=== PATIENT | male | born 1960 | race Caucasian/White ===

== ENCOUNTER 2017-04-20 14:02 | Emergency (ER) | payer MEDICAID, OTHER, SELFPAY ==
[~2017-04-20] VITALS: Ht 177.8 cm; Wt 91.0 kg
[2017-04-20] MEDS ORDERED: SODIUM CHLORIDE 0.9% 1,000ML IVBOLUS ONE ×2 (14:30→19:30)
[2017-04-20] MEDS ORDERED: ONDANSETRON 2MG/ML, 2ML ONE (19:07)
[2017-04-20] MEDS ORDERED: LORazepam 2 MG/ML, 1ML ONE (19:07)
[2017-04-20] MEDS ORDERED: LORazepam 2 MG/ML, 1ML IVPush ONE (19:30)
[2017-04-20] MEDS ORDERED: ONDANSETRON 2MG/ML, 2ML IVPush ONE (19:30)
[2017-04-20 20:05] VITALS: BP 126/85
== END 2017-04-20 20:21 | disposition home or self-care (01) ==
LOC: ED 20:15
DX: F10.220 Alcohol dependence with intoxication, uncomplicated (principal)
CPT/HCPCS: 96361; 96374; 96375; 99284; J2060; J2405; J7030

== ENCOUNTER 2017-04-20 23:19 | Emergency (ER) | payer SELFPAY ==
[2017-04-20 23:50] LABS: BLOOD UREA NITROGEN 7 mg/dL (7-18)
[2017-04-21 02:27] VITALS: BP 140/99
== END 2017-04-21 02:46 | disposition home or self-care (01) ==
LOC: ED 23:38
DX: S06.0X0A Concussion without loss of consciousness, initial encounter (principal); F10.120 Alcohol abuse with intoxication, uncomplicated; I10 Essential (primary) hypertension; W01.0XXA Fall on same level from slipping, tripping and stumbling without subsequent striking against object, initial encounter; Y93.89 Activity, other specified; Y92.89 Other specified places as the place of occurrence of the external cause; Y99.8 Other external cause status
CPT/HCPCS: 36415; 70450; 80048; 80307; 82040; 85025

== ENCOUNTER 2017-04-28 15:05 | Emergency (ER) | payer SELFPAY ==
[~2017-04-28] VITALS: Ht 177.8 cm; Wt 87.5 kg
[~2017-04-28 15:05] MED LIST: FOLI-17 PO; LISI1TAB5 PO; LORA-445 PO; MULT-658 PO; THIA100T6 PO
[2017-04-28 15:11] VITALS: BP 132/97
== END 2017-04-28 16:07 | disposition left against medical advice (07) ==
LOC: ED 15:57
DX: H57.10 Ocular pain, unspecified eye (principal)

== ENCOUNTER 2018-05-10 13:56 | Emergency (ER) | payer MEDICAID ==
[~2018-05-10] VITALS: Ht 180.3 cm; Wt 88.9 kg
[2018-05-10 13:57] VITALS: BP 182/113
[2018-05-10] MEDS ORDERED: CEFAZOLIN PMX 1GM/50ML 50 ML IVPB ONE (14:30)
[2018-05-10] MEDS ORDERED: SODIUM CHLORIDE FLUSH 10ML SYR IVF ONE (14:30)
[2018-05-10] MEDS ORDERED: CEFAZOLIN PMX 1GM/50ML 50 ML ONE (14:38)
[2018-05-10 15:26] LABS: HCT (SEDRATE) 38.8 % (39.2-51.8)
[2018-05-10 15:28] LABS: BASOPHILS # (AUTO) 0.02 x10^3/uL (0-0.1); BASOPHILS % (AUTO) 0 % (0-1); EOSINOPHILS # (AUTO) 0.12 x10^3/uL (0-0.4); EOSINOPHILS % (AUTO) 2 % (1-7); LYMPHOCYTES # (AUTO) 0.87 x10^3/uL (1-3.4); LYMPHOCYTES % (AUTO) 11 % (22-44); MD NO; MEAN CORPUSCULAR HEMOGLOBIN 30.7 pg (27.5-34.5); MEAN CORPUSCULAR HGB CONC 33.3 g/dL (33.2-36.2); MEAN PLATELET VOLUME 6.2 fL (7.4-10.4); MONOCYTES # (AUTO) 0.58 x10^3/uL (0.2-0.8); MONOCYTES % (AUTO) 7 % (2-9); NEUTROPHILS % (AUTO) 80 % (42-75); PLATELET COUNT 344 x10^3/uL (130-400); RED BLOOD COUNT 4.27 x10^6/uL (4.38-5.82); RED CELL DISTRIBUTION WIDTH 14.3 % (9.4-14.8)
[2018-05-10 15:34] LABS: ALBUMIN 3.5 g/dL (3.4-5.0); ANION GAP 5 mmol/L (5-15); CALCIUM 8.3 mg/dL (8.5-10.1); CHLORIDE 104 mmol/L (98-107); CREATININE 0.85 mg/dL (0.7-1.3)
== END 2018-05-10 17:03 | disposition home or self-care (01) ==
LOC: ED 14:45
DX: L03.115 Cellulitis of right lower limb (principal); B02.29 Other postherpetic nervous system involvement; I10 Essential (primary) hypertension
CPT/HCPCS: 36415; 73590; 80048; 82040; 85025; 85651; 87040; 87070; 87077; 87147; 87186; 87205; 93971; 96365; 96366; 99285; J0690

== ENCOUNTER 2020-03-27 10:54 | Emergency (ER) | payer SELFPAY ==
[~2020-03-27] VITALS: Ht 177.8 cm; Wt 84.0 kg
[~2020-03-27 10:54] MED LIST changes: +LISI-167 PO; +LISI1TAB19 PO; -LISI1TAB5 PO; -THIA100T6 PO; +THIA100T67 PO
--- NOTE | 2020-03-27 11:05 | NUR ---
PT BIB EMS FROM BUS STATION FOR INABILITY TO AMB. HX OF ETOH ABUSE, PT STS NO ETOH FOR 24 HOURS. CONNECTED TO MONITORING, HTN, HX OF WITH NON COMPLIANCE WITH MEDS. NO C/O PAIN, NO SIGNS OF INJURY NOTED. A&OX4, PUPILS EQUAL AND REACTIVE BUT SLUGGISH. ALL BELONGINGS BAGGED, BLANKETS PROVIDED FOR COMFORT. MD AT BEDSIDE. CALL LIGHT WITHIN REACH
--- NOTE | 2020-03-27 11:14 | NUR ---
ORDERS RECEIVED. LAB AT BEDSIDE FOR DRAW
[2020-03-27 11:37] LABS: ALBUMIN 3.6 g/dL (3.4-5.0); ANION GAP 5 mmol/L (5-15); CALCIUM 7.9 mg/dL (8.5-10.1); CHLORIDE 113 mmol/L (98-107); CREATININE 1.04 mg/dL (0.7-1.3)
[2020-03-27 11:38] LABS: BASOPHILS # (AUTO) 0.02 x10^3/uL (0-0.1); BASOPHILS % (AUTO) 0 % (0-1); EOSINOPHILS # (AUTO) 0.08 x10^3/uL (0-0.4); EOSINOPHILS % (AUTO) 2 % (1-7); LYMPHOCYTES # (AUTO) 1.02 x10^3/uL (1-3.4); LYMPHOCYTES % (AUTO) 28 % (22-44); MD NO; MEAN CORPUSCULAR HGB CONC 33.6 g/dL (33.2-36.2); MEAN CORPUSCULAR VOLUME 98.3 fL (81-97); MONOCYTES % (AUTO) 17 % (2-9); NEUTROPHILS # (AUTO) 1.91 x10^3/uL (1.8-6.8); NEUTROPHILS % (AUTO) 53 % (42-75); PLATELET COUNT 265 x10^3/uL (130-400); RED BLOOD COUNT 4.78 x10^6/uL (4.38-5.82); RED CELL DISTRIBUTION WIDTH 15.8 % (9.4-14.8)
--- NOTE | 2020-03-27 11:47 | NUR ---
ALL RESULTS BACK AT THIS TIME, CHART UP FOR RECHECK. PT RESTING COMFORTABLY IN BED AT THIS TIME. WILL CONTINUE TO MONITOR
--- NOTE | 2020-03-27 13:04 | NUR ---
MD TO BEDSIDE FOR RECHECK. PT UNABLE TO AMB WITHOUT ASSISTANCE AND SATS DIP INTO LOW 80S WHILE SLEEPING WITHOUT SUP O2. WILL CONTINUE TO MONITOR.
--- NOTE | 2020-03-27 13:58 | NUR ---
PT CONTINUES TO BE RESTING IN BED, NADN. VSS. WILL CONTINUE TO MONITOR
--- NOTE | 2020-03-27 14:54 | NUR ---
PT. WAS AMBULATED BY VICKEY Maldonado PT. AMBULATES GREAT.
[2020-03-27 14:59] VITALS: BP 117/69
--- NOTE | 2020-03-27 14:59 | NUR ---
PT ABLE TO AMB WITH STEADY GAIT. READY FOR DC
== END 2020-03-27 15:02 | disposition home or self-care (01) ==
LOC: ED 12:22
DX: F10.120 Alcohol abuse with intoxication, uncomplicated (principal); I10 Essential (primary) hypertension; Y90.0 Blood alcohol level of less than 20 mg/100 ml
CPT/HCPCS: 36415; 80048; 80307; 82040; 85025; 99283

== ENCOUNTER 2020-07-17 12:37 | Emergency (ER) | payer SELFPAY ==
[~2020-07-17] VITALS: Ht 182.9 cm; Wt 110.0 kg
[~2020-07-17 12:37] MED LIST changes: -LISI1TAB19 PO; +LISI1TAB39 PO
--- NOTE | 2020-07-17 14:00 | NUR ---
PT SLEEPING, RESPS EVEN AND UNLABORED. VSS. POC TO MONITOR UNTIL SAFE FOR DISCHARGE.
--- NOTE | 2020-07-17 14:45 | NUR ---
PT SLEEPING, RESPS EVEN AND UNLABORED. VSS. NADN AT THIS TIME.
--- NOTE | 2020-07-17 15:00 | NUR ---
REPORT GIVEN TO SARIKA DALE WHO IS ASSUMING CARE.
[2020-07-17 16:10] VITALS: BP 102/61
--- NOTE | 2020-07-17 16:11 | NUR ---
PT RESTING IN [facility]. NAD. VSS.
--- NOTE | 2020-07-17 17:04 | NUR ---
ATTEMPTED TO AMBUALTE PAITENT. PT UNABLE TO STAND WITHOUT SWAYING FROM SIDE TO SIDE. WILL CONTINUE TO MONITOR PT.
== END 2020-07-17 19:10 | disposition home or self-care (01) ==
LOC: ED 17:18
DX: S00.81XA Abrasion of other part of head, initial encounter (principal); F10.220 Alcohol dependence with intoxication, uncomplicated; I10 Essential (primary) hypertension; X58.XXXA Exposure to other specified factors, initial encounter; Y93.89 Activity, other specified; Y92.89 Other specified places as the place of occurrence of the external cause; Y99.8 Other external cause status; Y90.9 Presence of alcohol in blood, level not specified
CPT/HCPCS: 99283

== ENCOUNTER 2020-08-01 12:25 | Emergency (ER) | payer SELFPAY ==
[~2020-08-01] VITALS: Ht 177.8 cm; Wt 86.8 kg
--- NOTE | 2020-08-01 13:37 | NUR ---
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 PT REPORTS HIS VISIUAL FIELD HAS DECREASED SINCE A SURGERY HE HAD. VISUAL ACUITY TEST COMPLETE. PT RESTING IN [facility]. MD HAS BEEN IN ROOM FOR ASSESSMENT. WAITING FOR ORDERS AT THIS TIME
--- NOTE | 2020-08-01 14:04 | NUR ---
PT RESTING IN [facility]. AWAITING SPECIALIST
--- NOTE | 2020-08-01 15:44 | NUR ---
STILL WAITING ON SPECIALIST
[2020-08-01 15:45] VITALS: BP 163/119
--- NOTE | 2020-08-01 17:16 | NUR ---
TASK RN NOTE: PER PRIMARY RN PT AND ERMD AWAITING CALL BACK FROM SPECIALIST. NAD NOTED AT THIS TIME. PT AMBULATED TO BATHROOM WELL INDEPENDENTLY AND NOW BACK IN BED.
== END 2020-08-01 19:00 | disposition home or self-care (01) ==
LOC: ED 13:37
DX: H33.21 Serous retinal detachment, right eye (principal); I10 Essential (primary) hypertension
CPT/HCPCS: 99282

== ENCOUNTER 2020-08-06 19:23 | Emergency (ER) | payer MEDICAID ==
[~2020-08-06] VITALS: Ht 177.8 cm; Wt 88.0 kg
[2020-08-06 19:25] VITALS: BP 120/72
--- NOTE | 2020-08-06 19:50 | NUR ---
PT SEATED IN WHEELCHAIR AT NURSES STATION FOR SAFETY, NAD AT THIS TIME.
--- NOTE | 2020-08-06 20:55 | NUR ---
SLEEPING QUIETLY IN CHAIR AT [facility], NAD
--- NOTE | 2020-08-06 22:56 | NUR ---
RESTING QUIETLY IN WHEELCHAIR SEATED AT [facility] FOR SAFETY, NAD
--- NOTE | 2020-08-07 00:11 | NUR ---
RESTING QUIETLY, NAD AT THIS TIME.
--- NOTE | 2020-08-07 00:21 | NUR ---
PT UP AND AMBULATING IN HALLWAY, REQUESTING TO LEAVE, IN AA AND O TIMES 4 AT THIS TIME, STATES THAT HE DOES NOT KNOW WHY HE WAS BROUGHT HERE
== END 2020-08-07 00:25 ==
LOC: ED 20:06
DX: F10.229 Alcohol dependence with intoxication, unspecified (principal); I10 Essential (primary) hypertension; R41.82 Altered mental status, unspecified; Y90.0 Blood alcohol level of less than 20 mg/100 ml
CPT/HCPCS: 99283

== ENCOUNTER 2020-08-07 16:48 | Emergency (ER) | payer MEDICAID ==
[~2020-08-07] VITALS: Ht 177.8 cm; Wt 90.0 kg
--- NOTE | 2020-08-07 17:00 | NUR ---
SVITLANA HOLDEN AT BEDSIDE TO DISCUSS POC
--- NOTE | 2020-08-07 17:00 | NUR ---
PT BROUGHT IN BY MAISHA WITH CHIEF COMPLAINT OF "NEW ONSET BLINDESS" NO OTHER COMPLAINTS. BAND PN PTS LEFT WRIST STATED EYE SURGERY DONE [facility] 08.04.20. PT ADMITS TO ETOH ANS UNABLE TO RECALL EVENTS.
--- NOTE | 2020-08-07 18:01 | NUR ---
Snack provided, attempt to ambulate unsuccessful.
--- NOTE | 2020-08-07 18:31 | NUR ---
SPOKE WITH PATIENT ABOUT TRYING TO AMBULATE. PATIENT STATES HE IS NOT READY TO AMBULATE AT THIS TIME, DUE TO BLURRY VISION.
[2020-08-07 19:04] VITALS: BP 102/54
--- NOTE | 2020-08-07 19:08 | NUR ---
Provided pt with cab voucher to bus station, pt states he prefers to take bus to jail. Ambulating independently, steady gait. Pt refuses to do visual acuity with unaffected eye, but states he is able to see. Verbalizes understanding r/t f/u with eye doctor
== END 2020-08-07 19:09 | disposition home or self-care (01) ==
LOC: ED 17:08
DX: F10.220 Alcohol dependence with intoxication, uncomplicated (principal); R00.0 Tachycardia, unspecified; I10 Essential (primary) hypertension
CPT/HCPCS: 99283

== ENCOUNTER 2021-03-19 11:35 | Emergency (ER) | payer MEDICAID ==
[~2021-03-19] VITALS: Ht 177.8 cm; Wt 85.0 kg
[~2021-03-19 11:35] MED LIST changes: -FOLI-17 PO; +FOLI1TAB32 PO
[2021-03-19 11:55] VITALS: BP 163/107
--- NOTE | 2021-03-19 11:59 | NUR ---
BIB [facility] FROM [facility] ON [address] PT C/O ETOH INTOXICATION. 1/2 PINT VODKA AND 12 PK BEER TODAY. [facility]: [facility] 140 PER [facility]: PT STATED HAD A BLOODY NOSE TWO WEEKS AGO. [facility] CLEANED PTS HAND AND FACE. PTS SHOES HAVE DRIED BLOOD ON THEM. PT REFUSED TO REMOVE SWEATSHIRT AND GET INTO HOSPITAL [facility]. STRONG URINE ODOR COMING FROM PT, PANTS APPEAR TO BE WET. PT CONNECTED TO MONITORING. PT PLACED ON OXYGEN FOR SAFETY. CALL LIGHT IN REACH. ERMD AT BEDSIDE FOR ASSESSMENT.
--- NOTE | 2021-03-19 12:06 | NUR ---
PER ERMD, PT TO BE MTF.
--- NOTE | 2021-03-19 13:19 | NUR ---
PT SLEEPING ON GURNEY. RESP EVEN AND UNLABORED. PT CONNECTED TO MONITORING. CALL LIGHT IN REACH.
--- NOTE | 2021-03-19 14:23 | NUR ---
PT SLEEPING ON GURNEY. RESP EVEN AND UNLABORED. PT CONNECTED TO MONITORING. CALL LIGHT IN REACH.
--- NOTE | 2021-03-19 15:34 | NUR ---
PT SLEEPING ON GURNEY. RESP EVEN AND UNLABORED. PT CONNECTED TO MONITORING. CALL LIGHT IN REACH.
--- NOTE | 2021-03-19 16:15 | NUR ---
PT AMBULATED TO RESTROOM WITH STEADY GAIT. ERMD NOTIFIED.
== END 2021-03-19 16:24 | disposition home or self-care (01) ==
LOC: ED 16:15
DX: F10.229 Alcohol dependence with intoxication, unspecified (principal); Y90.0 Blood alcohol level of less than 20 mg/100 ml
CPT/HCPCS: 99283

== ENCOUNTER 2021-03-20 22:34 | Inpatient (IN) | payer MEDICAID ==
[~2021-03-20] VITALS: Ht 182.9 cm; Wt 86.9 kg
[2021-03-20] MEDS ORDERED: LORazepam 2 MG/ML, 1ML ONE ×2 (22:52→23:12)
[2021-03-20] MEDS ORDERED: MAGNESIUM SULFATE 1 GM, THIAMINE 100 MG, FOLIC ACID 1 MG, MVI ADULT 10 ML in SODIUM CHL... IV ONE (23:00)
[2021-03-20] MEDS ORDERED: SODIUM CHLORIDE 0.9% 1,000ML IVBOLUS ONE ×2 (23:00→23:30)
[2021-03-20] MEDS ORDERED: LORazepam 2 MG/ML, 1ML IVPush ONE (23:00)
[2021-03-20] MEDS ORDERED: SODIUM CHLORIDE FLUSH 10ML SYR IVF ONE (23:00)
[2021-03-20 23:15] LABS: BASOPHILS % (AUTO) 0 % (0-1); EOSINOPHILS % (AUTO) 0 % (1-7); LYMPHOCYTES % (AUTO) 3 % (22-44); MEAN CORPUSCULAR HEMOGLOBIN 33.2 pg (27.5-34.5); MEAN CORPUSCULAR HGB CONC 34.8 g/dL (33.2-36.2); MEAN PLATELET VOLUME 6.9 fL (7.4-10.4); MONOCYTES % (AUTO) 11 % (2-9); NEUTROPHILS % (AUTO) 87 % (42-75); PLATELET COUNT 93 x10^3/uL (130-400); RED BLOOD COUNT 3.99 x10^6/uL (4.38-5.82); RED CELL DISTRIBUTION WIDTH 16.2 % (9.4-14.8)
[2021-03-20 23:25] LABS: ALANINE AMINOTRANSFERASE 74 U/L (12-78); ALBUMIN 3.4 g/dL (3.4-5.0); ANION GAP 11 mmol/L (5-15); CALCIUM 8.1 mg/dL (8.5-10.1); CHLORIDE 97 mmol/L (98-107); CREATININE 1.16 mg/dL (0.7-1.3)
[2021-03-20 23:28] LABS: ALKALINE PHOSPHATASE 60 U/L (45-117); BILIRUBIN,TOTAL 2.1 mg/dL (0.2-1.0)
[2021-03-20] MEDS ORDERED: LORazepam 2 MG/ML, 1ML IVPush PRN (23:30)
[2021-03-20 23:38] LABS: MD SCAN
[2021-03-20] MEDS ORDERED: DILTIAZEM 5 MG/ML, 5ML ONE (23:50)
[2021-03-21] MEDS ORDERED: DILTIAZEM 5 MG/ML, 5ML IVPush ONE ×2
[2021-03-21] MEDS ORDERED: DILTIAZEM 125 MG in SODIUM CHLORIDE 0.9% 100 ML IV PRN
--- NOTE | 2021-03-21 00:04 | NUR ---
BIB [facility] FROM [facility] WITH C/O CONFUSION AND ETOH DETOX. LAST DRINK THIS MORNING. PT IN A-FIB WITH RVR. PT GIVEN CARDIZEM. HR JUMPS FREQUENTLY TO 200+ BPM. PT MEDICATED WITH CARDIZEM WITH GOOD EFFECT. EKGS TAKEN BEFORE AND AFTER CARD PUSH (SEE PAPER CHART) PT CIWA IMPROVED AFTER ATIVAN PUSH. SEIZURE PRECAUTIONS IN PLACED. PT IS A+OX4. PT REQUIRING SUPP O2 VIA NC. CALL LIGHT WITHIN REACH AND URINAL IS AT BEDSIDE.
--- NOTE | 2021-03-21 00:39 | NUR ---
PER DR ANTONY START DILT DRIP AT 10 MG/HR
[2021-03-21] MEDS ORDERED: ONDANSETRON 2MG/ML, 2ML ONE (00:58)
[2021-03-21] MEDS ORDERED: ENOXAPARIN 40 MG/0.4 ML SQ SCH (01:00)
[2021-03-21] MEDS ORDERED: PROMETHAZINE 25 MG/ML, 1ML IM PRN (01:00)
[2021-03-21] MEDS ORDERED: LORazepam 1MG TABLET PO PRN ×4 (01:00)
[2021-03-21] MEDS ORDERED: LORazepam 2 MG/ML, 1ML IV PRN ×5 (01:00)
[2021-03-21] MEDS ORDERED: BISACODYL 10 MG SUPP PR PRN (01:00)
[2021-03-21] MEDS: SODIUM CHLORIDE 0.9% 1,000 ML IV SCH ×2 (01:00→09:32)
[2021-03-21] MEDS ORDERED: DOCUSATE 100 MG CAPSULE PO PRN (01:00)
[2021-03-21] MEDS ORDERED: OXYcodone IR 5MG TABLET PO PRN (01:00)
[2021-03-21] MEDS ORDERED: ONDANSETRON ODT 4 MG PO PRN (01:00)
[2021-03-21] MEDS ORDERED: POLYETHYLENE GLYCOL 17 GM PACKET PO PRN (01:00)
[2021-03-21] MEDS ORDERED: ONDANSETRON 2MG/ML, 2ML IVPush PRN (01:00)
[2021-03-21] MEDS ORDERED: hydrALAzine 20 MG/ML, 1ML IVPush PRN (01:00)
--- NOTE | 2021-03-21 01:07 | NUR ---
PT MEDICATED WITH ZOFRAN FOR NAUSEA/DRY HEAVING.
--- NOTE | 2021-03-21 01:23 | NUR ---
PT HR SUSTAINING BETWEEN 140-160, VERY IRREGULAR RHYTHM. DR BRYANT NOTIFIED THAT PT IS AT MAX DILT TITRATION. STATES HE IS GOING TO PUT IN ORDERS FOR DIGOXIN
[2021-03-21] MEDS ORDERED: DIGOXIN 0.25 MG/ML, 2ML IVPush ONE (01:30)
--- NOTE | 2021-03-21 01:33 | NUR ---
REPORT TO SARIKA BAINS
[2021-03-21 02:03] VITALS: BP 117/79
[2021-03-21 04:43] LABS: BASOPHILS % (AUTO) 0 % (0-1); EOSINOPHILS % (AUTO) 0 % (1-7); LYMPHOCYTES % (AUTO) 4 % (22-44); MEAN CORPUSCULAR HGB CONC 34.2 g/dL (33.2-36.2); MONOCYTES % (AUTO) 10 % (2-9); NEUTROPHILS % (AUTO) 86 % (42-75); PLATELET COUNT 77 x10^3/uL (130-400); RED BLOOD COUNT 3.74 x10^6/uL (4.38-5.82)
[2021-03-21 04:44] LABS: MD NO
[2021-03-21 04:56] LABS: ALANINE AMINOTRANSFERASE 60 U/L (12-78); ALBUMIN 2.9 g/dL (3.4-5.0); ANION GAP 7 mmol/L (5-15); CALCIUM 7.5 mg/dL (8.5-10.1); CHLORIDE 104 mmol/L (98-107)
[2021-03-21 05:01] LABS: ALKALINE PHOSPHATASE 51 U/L (45-117); BILIRUBIN,TOTAL 1.5 mg/dL (0.2-1.0); CHOL/HDL RATIO 2.2; CHOLESTEROL, TOTAL 166 mg/dL (140-239); CREATININE 0.72 mg/dL (0.7-1.3); HDL CHOL % 45 % (26-37); HDL CHOLESTEROL (DIRECT) 75 mg/dL (40-60); LDL CHOLESTEROL,CALCULATED 68 mg/dL (54-169); LDL/HDL RATIO 0.9 (0.5-3.0); TOTAL PROTEIN 6.3 g/dL (6.4-8.2); TRIGLYCERIDES 117 mg/dL (50-200); VLDL CHOLESTEROL 23 mg/dL (0-25)
[2021-03-21] MEDS ORDERED: CHLORDIAZEPOXIDE 25 MG CAPSULE PO ONE (08:30)
[2021-03-21] MEDS ORDERED: THIAMINE 100MG TABLET PO SCH (09:00)
[2021-03-21] MEDS: FOLIC ACID 1 MG TABLET PO SCH (09:30)
[2021-03-21] MEDS: POTASSIUM ACID PHOSPHATE 500 MG TABLET.SOL PO SCH ×3 (09:30→21:02)
[2021-03-21] MEDS: MULTIVITAMIN 1 TABLET PO SCH (09:31)
[2021-03-21] MEDS ORDERED: DILTIAZEM 125 MG in SODIUM CHLORIDE 0.9% 100 ML IV SCH (15:00)
[2021-03-21] MEDS: CHLORDIAZEPOXIDE 25 MG CAPSULE PO SCH ×2 (15:46→21:03)
[2021-03-21 16:42] LABS: CLOSTRIDIUM DIFFICILE ANTIGEN NEGATIVE; CLOSTRIDIUM DIFFICILE TOXIN NEGATIVE (Negative)
[2021-03-21 19:20] VITALS: BP 123/73
[2021-03-21] MEDS: THIAMINE 100MG TABLET PO SCH (21:02)
[2021-03-22] MEDS: POTASSIUM ACID PHOSPHATE 500 MG TABLET.SOL PO SCH (03:28)
[2021-03-22 05:09] LABS: BASOPHILS % (AUTO) 0 % (0-1); EOSINOPHILS % (AUTO) 0 % (1-7); LYMPHOCYTES % (AUTO) 4 % (22-44); MEAN CORPUSCULAR HEMOGLOBIN 33.4 pg (27.5-34.5); MEAN CORPUSCULAR HGB CONC 34.1 g/dL (33.2-36.2); MEAN PLATELET VOLUME 7.6 fL (7.4-10.4); MONOCYTES % (AUTO) 8 % (2-9); NEUTROPHILS % (AUTO) 88 % (42-75); PLATELET COUNT 71 x10^3/uL (130-400); RED BLOOD COUNT 3.11 x10^6/uL (4.38-5.82)
[2021-03-22 05:21] LABS: ALBUMIN 2.4 g/dL (3.4-5.0); ANION GAP 7 mmol/L (5-15); CALCIUM 7.7 mg/dL (8.5-10.1); CHLORIDE 105 mmol/L (98-107)
[2021-03-22 05:26] LABS: ALANINE AMINOTRANSFERASE 45 U/L (12-78); ALKALINE PHOSPHATASE 48 U/L (45-117); BILIRUBIN,TOTAL 0.8 mg/dL (0.2-1.0); CREATININE 0.56 mg/dL (0.7-1.3); PROTHROMBIN TIME 10.7 Seconds (9.6-11.5); TOTAL PROTEIN 5.5 g/dL (6.4-8.2)
[2021-03-22 05:55] LABS: MD SCAN
[2021-03-22 08:00] VITALS: BP 131/64
[2021-03-22] MEDS ORDERED: SODIUM CHLORIDE 0.9%, 500ML IVBOLUS ONE (08:00)
[2021-03-22] MEDS ORDERED: SODIUM CHLORIDE 0.9% 1,000 ML IV SCH (08:00)
[2021-03-22] MEDS: DILTIAZEM 30 MG TABLET PO SCH ×2 (08:51→21:20)
[2021-03-22] MEDS: CHLORDIAZEPOXIDE 25 MG CAPSULE PO SCH ×3 (08:51→21:20)
[2021-03-22] MEDS: FOLIC ACID 1 MG TABLET PO SCH (08:51)
[2021-03-22] MEDS: THIAMINE 100MG TABLET PO SCH ×2 (08:51→21:20)
[2021-03-22] MEDS: MULTIVITAMIN 1 TABLET PO SCH (08:51)
[2021-03-22 14:59] VITALS: BP 129/77
[2021-03-22 20:10] VITALS: BP 132/70
[2021-03-22] MEDS ORDERED: POTASSIUM CHLORIDE 20 MEQ TAB.ER.PRT PO ONE (20:30)
[2021-03-23] MEDS: CALCIUM CARBONATE 500 MG TAB.CHEW PO PRN ×3 (00:29→06:09)
[2021-03-23 01:37] VITALS: BP 126/73
[2021-03-23] MEDS: LORazepam 0.5MG TABLET PO PRN ×3 (02:56→16:09)
[2021-03-23 04:37] LABS: BASOPHILS % (AUTO) 0 % (0-1); EOSINOPHILS % (AUTO) 1 % (1-7); LYMPHOCYTES % (AUTO) 5 % (22-44); MEAN CORPUSCULAR HEMOGLOBIN 33.6 pg (27.5-34.5); MEAN CORPUSCULAR HGB CONC 34.2 g/dL (33.2-36.2); MEAN PLATELET VOLUME 7.6 fL (7.4-10.4); MONOCYTES % (AUTO) 8 % (2-9); NEUTROPHILS % (AUTO) 85 % (42-75); PLATELET COUNT 88 x10^3/uL (130-400); RED BLOOD COUNT 3.23 x10^6/uL (4.38-5.82); RED CELL DISTRIBUTION WIDTH 15.9 % (9.4-14.8)
[2021-03-23 04:40] LABS: MD NO
[2021-03-23 04:51] LABS: CHLORIDE 104 mmol/L (98-107)
[2021-03-23 05:04] LABS: % IRON SATURATION 20 % (20-55); ALANINE AMINOTRANSFERASE 53 U/L (12-78); ALBUMIN 2.6 g/dL (3.4-5.0); ALKALINE PHOSPHATASE 54 U/L (45-117); ANION GAP 4 mmol/L (5-15); BILIRUBIN,TOTAL 0.7 mg/dL (0.2-1.0); CALCIUM 8.1 mg/dL (8.5-10.1); CREATINE KINASE, TOTAL 198 U/L (39-308); CREATININE 0.71 mg/dL (0.7-1.3); IRON LEVEL 25 mcg/dL (65-175); TOTAL IRON BINDING CAPACITY 125 mcg/dL (250-450)
[2021-03-23] MEDS: ASPIRIN 325 MG TABLET PO SCH (06:00)
[2021-03-23] MEDS ORDERED: POTASSIUM CHLORIDE 20 MEQ TAB.ER.PRT PO ONE (06:30)
[2021-03-23 07:00] VITALS: BP 150/98
[2021-03-23] MEDS: THIAMINE 100MG TABLET PO SCH ×2 (07:42→20:32)
[2021-03-23] MEDS: MULTIVITAMIN 1 TABLET PO SCH (07:42)
[2021-03-23] MEDS: FOLIC ACID 1 MG TABLET PO SCH (07:43)
[2021-03-23] MEDS: DILTIAZEM 30 MG TABLET PO SCH ×2 (07:43→20:32)
[2021-03-23] MEDS: GUAIFENESIN/DM 200-20MG, 10ML UDC PO SCH ×3 (08:00→20:32)
[2021-03-23 13:10] VITALS: BP 136/85
[2021-03-23 19:46] VITALS: BP 145/78
[2021-03-24 01:38] VITALS: BP 140/83
[2021-03-24 04:57] LABS: BASOPHILS % (AUTO) 1 % (0-1); EOSINOPHILS % (AUTO) 2 % (1-7); LYMPHOCYTES % (AUTO) 9 % (22-44); MEAN CORPUSCULAR HEMOGLOBIN 33.7 pg (27.5-34.5); MEAN CORPUSCULAR HGB CONC 34.5 g/dL (33.2-36.2); MEAN PLATELET VOLUME 7.1 fL (7.4-10.4); MONOCYTES % (AUTO) 13 % (2-9); NEUTROPHILS % (AUTO) 75 % (42-75); PLATELET COUNT 128 x10^3/uL (130-400); RED BLOOD COUNT 3.36 x10^6/uL (4.38-5.82); RED CELL DISTRIBUTION WIDTH 16.1 % (9.4-14.8)
[2021-03-24 04:58] LABS: MD NO
[2021-03-24] MEDS: ASPIRIN 325 MG TABLET PO SCH (05:05)
[2021-03-24] MEDS: GUAIFENESIN/DM 200-20MG, 10ML UDC PO SCH ×3 (05:05→21:42)
[2021-03-24 05:06] LABS: CHLORIDE 105 mmol/L (98-107)
[2021-03-24] MEDS: CALCIUM CARBONATE 500 MG TAB.CHEW PO PRN (05:10)
[2021-03-24 05:12] LABS: ANION GAP 4 mmol/L (5-15); CALCIUM 8.5 mg/dL (8.5-10.1); CREATININE 0.77 mg/dL (0.7-1.3)
[2021-03-24 07:30] VITALS: BP 144/79
[2021-03-24] MEDS: DILTIAZEM 30 MG TABLET PO SCH ×2 (09:03→21:44)
[2021-03-24] MEDS: FOLIC ACID 1 MG TABLET PO SCH (09:04)
[2021-03-24] MEDS: THIAMINE 100MG TABLET PO SCH ×2 (09:05→21:43)
[2021-03-24] MEDS: MULTIVITAMIN 1 TABLET PO SCH (09:05)
[2021-03-24] MEDS: ERYTHROMYCIN OPHTH 0.5%, 1GM EACHEYE SCH ×3 (13:04→21:47)
[2021-03-24 13:28] VITALS: BP 125/77
[2021-03-24 18:48] VITALS: BP 103/62
[2021-03-25 01:17] VITALS: BP 106/72
[2021-03-25] MEDS: GUAIFENESIN/DM 200-20MG, 10ML UDC PO SCH ×4 (04:04→21:07)
[2021-03-25] MEDS: ERYTHROMYCIN OPHTH 0.5%, 1GM EACHEYE SCH ×4 (06:13→21:08)
[2021-03-25] MEDS: ASPIRIN 325 MG TABLET PO SCH (06:17)
[2021-03-25 07:52] VITALS: BP 152/91
[2021-03-25] MEDS: DILTIAZEM 30 MG TABLET PO SCH ×2 (09:03→21:07)
[2021-03-25] MEDS: FOLIC ACID 1 MG TABLET PO SCH (09:04)
[2021-03-25] MEDS: MULTIVITAMIN 1 TABLET PO SCH (09:04)
[2021-03-25] MEDS: THIAMINE 100MG TABLET PO SCH ×2 (09:06→21:07)
[2021-03-25 19:15] VITALS: BP 133/86
[2021-03-25 21:07] VITALS: BP 137/93
[2021-03-25] MEDS: TRAZODONE 50MG TABLET PO SCH (21:07)
[2021-03-26 03:00] VITALS: BP 138/93
[2021-03-26] MEDS: GUAIFENESIN/DM 200-20MG, 10ML UDC PO SCH ×4 (03:02→20:46)
[2021-03-26] MEDS: ASPIRIN 325 MG TABLET PO SCH (06:06)
[2021-03-26] MEDS: ERYTHROMYCIN OPHTH 0.5%, 1GM EACHEYE SCH ×4 (06:07→20:44)
[2021-03-26 07:47] VITALS: BP 142/98
[2021-03-26] MEDS: THIAMINE 100MG TABLET PO SCH ×2 (08:57→20:46)
[2021-03-26] MEDS: MULTIVITAMIN 1 TABLET PO SCH (08:57)
[2021-03-26] MEDS: FOLIC ACID 1 MG TABLET PO SCH (08:57)
[2021-03-26] MEDS: DILTIAZEM 30 MG TABLET PO SCH ×2 (08:59→20:46)
[2021-03-26 13:15] VITALS: BP 136/88
[2021-03-26 20:17] VITALS: BP 137/88
[2021-03-26] MEDS: TRAZODONE 50MG TABLET PO SCH (20:46)
[2021-03-27 00:47] VITALS: BP 120/81
[2021-03-27] MEDS: GUAIFENESIN/DM 200-20MG, 10ML UDC PO SCH ×2 (02:48→09:18)
[2021-03-27 04:46] LABS: MEAN CORPUSCULAR HEMOGLOBIN 33.6 pg (27.5-34.5); MEAN CORPUSCULAR HGB CONC 33.9 g/dL (33.2-36.2); MEAN PLATELET VOLUME 6.3 fL (7.4-10.4); PLATELET COUNT 344 x10^3/uL (130-400); RED BLOOD COUNT 3.76 x10^6/uL (4.38-5.82)
[2021-03-27 04:55] LABS: ALANINE AMINOTRANSFERASE 72 U/L (12-78); ALBUMIN 3.2 g/dL (3.4-5.0); ANION GAP 3 mmol/L (5-15); CHLORIDE 104 mmol/L (98-107)
[2021-03-27 04:58] LABS: ALKALINE PHOSPHATASE 51 U/L (45-117); BILIRUBIN,TOTAL 0.7 mg/dL (0.2-1.0); CREATININE 0.79 mg/dL (0.7-1.3); TOTAL PROTEIN 6.9 g/dL (6.4-8.2)
[2021-03-27 05:42] LABS: MD YES
[2021-03-27 05:43] LABS: BANDS%(MANUAL) 2 % (0-7); EOS% (MANUAL) 2 % (1-7); LYMPH#(MANUAL) 0.93 x10^3/uL (1-3.4); LYMPHS% (MANUAL) 19 % (22-44); MONOS#(MANUAL) 1.32 x10^3/uL (0.3-2.7); MONOS% (MANUAL) 27 % (2-9)
[2021-03-27 05:44] LABS: METAMYELOCYTES% (MANUAL) 2 % (0-1); SEG#(MANUAL) 2.35 x10^3/uL (1.8-6.8); SEGS% (MANUAL) 48 % (42-75)
[2021-03-27 05:46] LABS: <PLATELET ESTIMATE> ADEQUATE; ANISOCYTOSIS 1+; POLYCHROMASIA 1+; SMALL PLATELETS 1+
[2021-03-27] MEDS: ASPIRIN 325 MG TABLET PO SCH (06:11)
[2021-03-27] MEDS: ERYTHROMYCIN OPHTH 0.5%, 1GM EACHEYE SCH ×2 (06:11→11:14)
[2021-03-27 06:38] VITALS: BP 146/95
[2021-03-27] MEDS: MULTIVITAMIN 1 TABLET PO SCH (09:17)
[2021-03-27] MEDS: THIAMINE 100MG TABLET PO SCH (09:17)
[2021-03-27] MEDS: FOLIC ACID 1 MG TABLET PO SCH (09:18)
[2021-03-27] MEDS: DILTIAZEM 30 MG TABLET PO SCH (09:18)
[2021-03-27] MEDS ORDERED: TRAZ50TA66 PO (10:03)
[2021-03-27] MEDS ORDERED: THIA100T67 PO (10:03)
[2021-03-27] MEDS ORDERED: DILT30TA33 PO (10:03)
== END 2021-03-27 13:30 | DRG 91 ==
LOC: ED 23:00 → EDIP 03-21 00:16 → CCU 03-21 01:52 → 5SO 03-21 17:03
PROVIDERS: ADMIT Internal Medicine; ATTEND Hospitalist
DX: G92 Toxic encephalopathy (principal); J96.01 Acute respiratory failure with hypoxia; I50.30 Unspecified diastolic (congestive) heart failure; D68.69 Other thrombophilia; F10.231 Alcohol dependence with withdrawal delirium; I48.0 Paroxysmal atrial fibrillation; K70.10 Alcoholic hepatitis without ascites; R94.31 Abnormal electrocardiogram [ECG] [EKG]; I11.0 Hypertensive heart disease with heart failure; K76.0 Fatty (change of) liver, not elsewhere classified; K80.20 Calculus of gallbladder without cholecystitis without obstruction; S00.83XA Contusion of other part of head, initial encounter; G47.00 Insomnia, unspecified; F32.9 Major depressive disorder, single episode, unspecified; D64.9 Anemia, unspecified; D69.59 Other secondary thrombocytopenia; E87.6 Hypokalemia; E83.39 Other disorders of phosphorus metabolism; E88.09 Other disorders of plasma-protein metabolism, not elsewhere classified; H10.9 Unspecified conjunctivitis; Z63.8 Other specified problems related to primary support group; Z91.14 Patient's other noncompliance with medication regimen; Z91.19 Patient's noncompliance with other medical treatment and regimen; Z79.899 Other long term (current) drug therapy; Z79.891 Long term (current) use of opiate analgesic; Z79.01 Long term (current) use of anticoagulants; Z90.49 Acquired absence of other specified parts of digestive tract
CPT/HCPCS: 36415; 96374; 99291; C8929; 70450; 71045; 76700; 80048; 80053; 80061; 80074; 80320; 82550; 83036; 83540; 83550; 83735; 84100; 84443; 85025; 85610; 87081; 87147; 87324; 93005; G0378; J1650; J2405; J3411; J3475; Q9957; G0480; J1160; J2060; J7030; J7040

== ENCOUNTER 2021-04-19 00:05 | Inpatient (IN) | payer MEDICAID ==
[~2021-04-19] VITALS: Ht 177.8 cm; Wt 80.1 kg
[~2021-04-19 00:05] MED LIST changes: +DILT30TA33 PO; +TRAZ50TA66 PO
[2021-04-19] MEDS ORDERED: LORazepam 2 MG/ML, 1ML ONE (00:19)
[2021-04-19 00:30] LABS: MEAN CORPUSCULAR HEMOGLOBIN 33.2 pg (27.5-34.5); MEAN CORPUSCULAR HGB CONC 34.5 g/dL (33.2-36.2); MEAN PLATELET VOLUME 6.8 fL (7.4-10.4); PLATELET COUNT 127 x10^3/uL (130-400); RED BLOOD COUNT 4.64 x10^6/uL (4.38-5.82); RED CELL DISTRIBUTION WIDTH 16.4 % (9.4-14.8)
[2021-04-19] MEDS ORDERED: LORazepam 2 MG/ML, 1ML IVPush ONE (00:30)
[2021-04-19] MEDS ORDERED: SODIUM CHLORIDE 0.9% 1,000ML IVBOLUS ONE ×2 (00:30→01:00)
[2021-04-19 00:34] LABS: ALANINE AMINOTRANSFERASE 83 U/L (12-78); ALBUMIN 3.8 g/dL (3.4-5.0); ANION GAP 26 mmol/L (5-15); CALCIUM 7.5 mg/dL (8.5-10.1); CHLORIDE 88 mmol/L (98-107); CREATININE 1.87 mg/dL (0.7-1.3)
[2021-04-19 00:36] LABS: ALKALINE PHOSPHATASE 95 U/L (45-117); BILIRUBIN,TOTAL 2.2 mg/dL (0.2-1.0); TOTAL PROTEIN 7.9 g/dL (6.4-8.2)
[2021-04-19] MEDS ORDERED: DEXTROSE 50%, 50ML SYRINGE ONE (00:41)
[2021-04-19 00:55] LABS: ANISOCYTOSIS 1+; BAND#(MANUAL) 1.74 x10^3/uL; BANDS%(MANUAL) 9 % (0-7); LYMPH#(MANUAL) 0.58 x10^3/uL (1-3.4); LYMPHS% (MANUAL) 3 % (22-44); METAMYELOCYTES# (MANUAL) 0.19 x10^3/uL (0-0); METAMYELOCYTES% (MANUAL) 1 % (0-1); MONOS#(MANUAL) 0.39 x10^3/uL (0.3-2.7); MONOS% (MANUAL) 2 % (2-9); PMNS WITH VACUOLES 1+; POLYCHROMASIA 1+; SEG#(MANUAL) 16.41 x10^3/uL (1.8-6.8); SEGS% (MANUAL) 85 % (42-75)
[2021-04-19] MEDS ORDERED: THIAMINE 100 MG/ML, 2ML ONE (00:55)
[2021-04-19 00:56] LABS: <PLATELET ESTIMATE> DECREASED; SMALL PLATELETS 1+
[2021-04-19] MEDS ORDERED: DEXTROSE 5% 1,000 ML IV SCH (01:00)
[2021-04-19] MEDS ORDERED: THIAMINE 100 MG/ML, 2ML IM ONE (01:00)
[2021-04-19] MEDS ORDERED: ONDANSETRON 2MG/ML, 2ML IVPush PRN ×2 (01:00→02:30)
[2021-04-19] MEDS ORDERED: DEXTROSE 50%, 50ML SYRINGE IVPush ONE (01:00)
--- NOTE | 2021-04-19 01:30 | NUR ---
hosp at bedside. pt was having bouts of afib that lasted for about 1-2 min. pt back in sinus tach rhythm. unable to catch possible afib on ekg. erp aware, fluids running, cxr taken
[2021-04-19] MEDS ORDERED: CEFTRIAXONE 1,000 MG in DEXTROSE 5% 50 ML IVPB ONE (02:00)
--- NOTE | 2021-04-19 02:00 | NUR ---
new I.V #20 G inserted to LFA in aseptic technique, blood return, flushed, and patent.
[2021-04-19] MEDS ORDERED: LORazepam 2 MG/ML, 1ML IV PRN ×3 (02:30)
[2021-04-19] MEDS ORDERED: CALCIUM GLUCONATE 4.6 MEQ in SODIUM CHLORIDE 0.9% 50 ML IV ONE (02:30)
[2021-04-19] MEDS ORDERED: PHARMACY MAY ADJ FOR RENAL FX MC PRN ×2 (02:30→08:30)
--- NOTE | 2021-04-19 02:36 | NUR ---
Condom cath placed
--- NOTE | 2021-04-19 02:42 | NUR ---
ultra sound and lab at bedside
[2021-04-19 03:00] LABS: INTERNATIONAL NORMALIZED RATIO 1.14 (0.93-1.1); PROTHROMBIN TIME 12.2 Seconds (9.6-11.5)
[2021-04-19 04:19] VITALS: BP 136/78
[2021-04-19] MEDS: DIAZEPAM 10 MG TABLET PO SCH ×4 (05:00→20:18)
[2021-04-19] MEDS: POTASSIUM CHLORIDE 20 MEQ, MAGNESIUM SULFATE 2 GM, THIAMINE 200 MG, MVI ADULT 10 ML, FO... IV SCH ×2 (05:01→14:48)
[2021-04-19] MEDS: HEPARIN 5,000 UNITS/ML, 1ML SQ SCH ×3 (05:01→22:01)
[2021-04-19 06:03] LABS: MICROSCOPIC INDICATED
[2021-04-19 08:13] VITALS: BP 128/92
[2021-04-19] MEDS ORDERED: PIPERACILLIN/TAZO 3.375 GM in DEXTROSE 5% 50 ML IVPB SCH (08:30)
[2021-04-19] MEDS: LINEZOLID 600 MG TABLET PO SCH ×2 (09:00→20:18)
[2021-04-19] MEDS: LORazepam 2 MG/ML, 1ML IV PRN ×3 (09:01→23:28)
[2021-04-19] MEDS: PIPERACILLIN/TAZO 2.25 GM in DEXTROSE 5% 50 ML IVPB SCH ×2 (10:58→17:22)
[2021-04-19 14:26] VITALS: BP 137/87
[2021-04-19 21:40] VITALS: BP 140/95
[2021-04-20] MEDS: LORazepam 2 MG/ML, 1ML IV PRN ×3 (00:09→08:10)
[2021-04-20 00:12] VITALS: BP 151/87
[2021-04-20] MEDS: PIPERACILLIN/TAZO 2.25 GM in DEXTROSE 5% 50 ML IVPB SCH ×2 (02:16→10:35)
[2021-04-20] MEDS: DIAZEPAM 5 MG TABLET PO SCH ×4 (02:20→20:51)
[2021-04-20] MEDS: HEPARIN 5,000 UNITS/ML, 1ML SQ SCH ×3 (05:14→21:34)
[2021-04-20 05:24] LABS: BASOPHILS % (AUTO) 0 % (0-1); EOSINOPHILS % (AUTO) 0 % (1-7); LYMPHOCYTES % (AUTO) 6 % (22-44); MEAN CORPUSCULAR HEMOGLOBIN 33.7 pg (27.5-34.5); MEAN CORPUSCULAR HGB CONC 35.2 g/dL (33.2-36.2); MEAN PLATELET VOLUME 7.3 fL (7.4-10.4); MONOCYTES % (AUTO) 8 % (2-9); NEUTROPHILS % (AUTO) 86 % (42-75); PLATELET COUNT 87 x10^3/uL (130-400); RED CELL DISTRIBUTION WIDTH 16.6 % (9.4-14.8)
[2021-04-20 05:45] LABS: ALANINE AMINOTRANSFERASE 66 U/L (12-78); ALBUMIN 2.9 g/dL (3.4-5.0); ANION GAP 11 mmol/L (5-15); CALCIUM 7.4 mg/dL (8.5-10.1); CHLORIDE 111 mmol/L (98-107); CREATININE 1.38 mg/dL (0.7-1.3)
[2021-04-20 05:48] LABS: ALKALINE PHOSPHATASE 55 U/L (45-117); BILIRUBIN,TOTAL 0.6 mg/dL (0.2-1.0)
[2021-04-20 08:04] VITALS: BP 161/93
[2021-04-20] MEDS: LINEZOLID 600 MG TABLET PO SCH ×2 (08:09→20:51)
[2021-04-20] MEDS ORDERED: POTASSIUM CHLORIDE 20 MEQ, MAGNESIUM SULFATE 2 GM, THIAMINE 200 MG, MVI ADULT 10 ML, FO... IV SCH (09:00)
[2021-04-20] MEDS ORDERED: LORazepam 0.5MG TABLET PO PRN (11:30)
[2021-04-20] MEDS: MULTIVITAMIN 1 TABLET PO SCH (11:30)
[2021-04-20] MEDS ORDERED: LORazepam 1MG TABLET PO PRN ×3 (11:30)
[2021-04-20] MEDS: POTASSIUM ACID PHOSPHATE 500 MG TABLET.SOL PO SCH ×3 (11:50→23:30)
[2021-04-20] MEDS: LORazepam 1MG TABLET PO PRN ×3 (11:51→21:34)
[2021-04-20] MEDS: THIAMINE 100MG TABLET PO SCH (11:51)
[2021-04-20 14:02] VITALS: BP 153/92
[2021-04-20] MEDS: PIPERACILLIN/TAZO 3.375 GM in DEXTROSE 5% 50 ML IVPB SCH (18:14)
[2021-04-20 19:14] VITALS: BP 160/98
[2021-04-21 01:06] VITALS: BP 152/89
[2021-04-21] MEDS: DIAZEPAM 5 MG TABLET PO SCH ×4 (02:15→20:20)
[2021-04-21] MEDS: PIPERACILLIN/TAZO 3.375 GM in DEXTROSE 5% 50 ML IVPB SCH ×2 (02:15→10:37)
[2021-04-21] MEDS ORDERED: LORazepam 2 MG/ML, 1ML IV PRN ×3 (02:30)
[2021-04-21] MEDS: LORazepam 2 MG/ML, 1ML IV PRN ×3 (02:31→23:27)
[2021-04-21 06:02] LABS: BASOPHILS % (AUTO) 0 % (0-1); EOSINOPHILS % (AUTO) 1 % (1-7); LYMPHOCYTES % (AUTO) 10 % (22-44); MEAN CORPUSCULAR HEMOGLOBIN 33.4 pg (27.5-34.5); MEAN CORPUSCULAR HGB CONC 35.1 g/dL (33.2-36.2); MEAN PLATELET VOLUME 7.4 fL (7.4-10.4); MONOCYTES % (AUTO) 9 % (2-9); NEUTROPHILS % (AUTO) 80 % (42-75); PLATELET COUNT 97 x10^3/uL (130-400); RED BLOOD COUNT 3.71 x10^6/uL (4.38-5.82); RED CELL DISTRIBUTION WIDTH 16.4 % (9.4-14.8)
[2021-04-21 06:11] LABS: ANION GAP 14 mmol/L (5-15); CALCIUM 7.9 mg/dL (8.5-10.1); CHLORIDE 108 mmol/L (98-107)
[2021-04-21] MEDS: POTASSIUM ACID PHOSPHATE 500 MG TABLET.SOL PO SCH ×4 (06:11→20:20)
[2021-04-21] MEDS: HEPARIN 5,000 UNITS/ML, 1ML SQ SCH ×3 (06:12→21:41)
[2021-04-21 06:16] LABS: ALANINE AMINOTRANSFERASE 74 U/L (12-78); ALKALINE PHOSPHATASE 52 U/L (45-117); BILIRUBIN,TOTAL 0.9 mg/dL (0.2-1.0); CREATININE 1.05 mg/dL (0.7-1.3); TOTAL PROTEIN 6.1 g/dL (6.4-8.2)
[2021-04-21 07:15] VITALS: BP 135/89
[2021-04-21] MEDS: MULTIVITAMIN 1 TABLET PO SCH (09:26)
[2021-04-21] MEDS: POTASSIUM CHLORIDE 20 MEQ TAB.ER.PRT PO SCH ×3 (09:26→20:20)
[2021-04-21] MEDS: LINEZOLID 600 MG TABLET PO SCH (09:26)
[2021-04-21] MEDS: THIAMINE 100MG TABLET PO SCH (09:26)
[2021-04-21 12:33] VITALS: BP 159/111
[2021-04-21] MEDS: LORazepam 1MG TABLET PO PRN (12:51)
[2021-04-21 13:02] VITALS: BP 155/111
[2021-04-21] MEDS: LABETALOL 5MG/ML, 20ML IVPush PRN (13:04)
[2021-04-21 13:11] VITALS: BP 137/92
[2021-04-21 18:55] VITALS: BP 150/102
[2021-04-22 00:52] VITALS: BP 174/129
[2021-04-22] MEDS: POTASSIUM CHLORIDE 20 MEQ TAB.ER.PRT PO SCH ×4 (03:22→19:44)
[2021-04-22] MEDS: LORazepam 2 MG/ML, 1ML IV PRN ×2 (03:22→04:34)
[2021-04-22] MEDS: POTASSIUM ACID PHOSPHATE 500 MG TABLET.SOL PO SCH (03:22)
[2021-04-22 06:08] LABS: ALBUMIN 3.1 g/dL (3.4-5.0); ANION GAP 9 mmol/L (5-15); BASOPHILS % (AUTO) 1 % (0-1); CHLORIDE 110 mmol/L (98-107); EOSINOPHILS % (AUTO) 2 % (1-7); LYMPHOCYTES % (AUTO) 11 % (22-44); MEAN CORPUSCULAR HEMOGLOBIN 33.2 pg (27.5-34.5); MEAN CORPUSCULAR HGB CONC 34.1 g/dL (33.2-36.2); MONOCYTES % (AUTO) 10 % (2-9); NEUTROPHILS % (AUTO) 77 % (42-75); PLATELET COUNT 108 x10^3/uL (130-400); RED BLOOD COUNT 3.84 x10^6/uL (4.38-5.82); RED CELL DISTRIBUTION WIDTH 16.6 % (9.4-14.8)
[2021-04-22 06:13] LABS: ALANINE AMINOTRANSFERASE 73 U/L (12-78); ALKALINE PHOSPHATASE 49 U/L (45-117); BILIRUBIN,TOTAL 0.9 mg/dL (0.2-1.0); CREATININE 0.89 mg/dL (0.7-1.3); TOTAL PROTEIN 6.4 g/dL (6.4-8.2)
[2021-04-22] MEDS: HEPARIN 5,000 UNITS/ML, 1ML SQ SCH ×3 (06:19→21:37)
[2021-04-22 07:35] VITALS: BP 142/95
[2021-04-22] MEDS: MULTIVITAMIN 1 TABLET PO SCH (09:00)
[2021-04-22] MEDS: THIAMINE 100MG TABLET PO SCH ×3 (09:00→21:37)
[2021-04-22 12:14] VITALS: BP 144/103
[2021-04-22] MEDS ORDERED: MAGNESIUM SULFATE PMX 2GM/50ML 50 ML IV ONE (18:30)
[2021-04-22 20:07] VITALS: BP 151/99
[2021-04-23 00:34] VITALS: BP 145/100
[2021-04-23] MEDS: LABETALOL 5MG/ML, 20ML IVPush PRN (00:52)
[2021-04-23 05:12] LABS: BASOPHILS % (AUTO) 0 % (0-1); EOSINOPHILS % (AUTO) 2 % (1-7); LYMPHOCYTES % (AUTO) 11 % (22-44); MEAN CORPUSCULAR HEMOGLOBIN 33.6 pg (27.5-34.5); MEAN CORPUSCULAR HGB CONC 34.1 g/dL (33.2-36.2); MEAN PLATELET VOLUME 6.6 fL (7.4-10.4); MONOCYTES % (AUTO) 13 % (2-9); NEUTROPHILS % (AUTO) 75 % (42-75); PLATELET COUNT 118 x10^3/uL (130-400); RED BLOOD COUNT 3.76 x10^6/uL (4.38-5.82); RED CELL DISTRIBUTION WIDTH 17.1 % (9.4-14.8)
[2021-04-23 05:22] LABS: ANION GAP 6 mmol/L (5-15); CHLORIDE 107 mmol/L (98-107); CREATININE 0.72 mg/dL (0.7-1.3)
[2021-04-23] MEDS: HEPARIN 5,000 UNITS/ML, 1ML SQ SCH ×3 (05:52→20:54)
[2021-04-23 08:07] VITALS: BP 127/85
[2021-04-23] MEDS: THIAMINE 100MG TABLET PO SCH ×3 (10:53→20:54)
[2021-04-23] MEDS: POTASSIUM CHLORIDE 20 MEQ TAB.ER.PRT PO SCH ×3 (10:53→20:54)
[2021-04-23] MEDS: MULTIVITAMIN 1 TABLET PO SCH (10:53)
[2021-04-23 12:20] VITALS: BP 134/92
[2021-04-23 19:06] VITALS: BP 114/78
[2021-04-24 01:45] VITALS: BP 123/83
[2021-04-24] MEDS: HEPARIN 5,000 UNITS/ML, 1ML SQ SCH (05:23)
[2021-04-24 07:33] VITALS: BP 121/84
[2021-04-24 07:39] LABS: ANION GAP 5 mmol/L (5-15); CALCIUM 8.3 mg/dL (8.5-10.1); CHLORIDE 109 mmol/L (98-107)
[2021-04-24] MEDS: MULTIVITAMIN 1 TABLET PO SCH (08:02)
[2021-04-24] MEDS: THIAMINE 100MG TABLET PO SCH (08:02)
[2021-04-24] MEDS ORDERED: THIA100T67 PO (08:20)
[2021-04-24] MEDS ORDERED: MULT-482 PO (08:20)
[2021-04-24] MEDS ORDERED: FOLI1TAB32 PO (08:20)
== END 2021-04-24 10:47 | disposition home or self-care (01) | DRG 871 ==
LOC: ED 00:34 → EDIP 02:32 → 4EST 03:52 → DCLOUNGE 04-24 10:40
PROVIDERS: ADMIT Family Medicine; ATTEND Internal Medicine
DX: A41.9 Sepsis, unspecified organism (principal); G92 Toxic encephalopathy; N17.0 Acute kidney failure with tubular necrosis; D84.9 Immunodeficiency, unspecified; E87.1 Hypo-osmolality and hyponatremia; F10.231 Alcohol dependence with withdrawal delirium; D69.59 Other secondary thrombocytopenia; E16.2 Hypoglycemia, unspecified; E83.39 Other disorders of phosphorus metabolism; E83.42 Hypomagnesemia; E86.0 Dehydration; E87.6 Hypokalemia; E88.09 Other disorders of plasma-protein metabolism, not elsewhere classified; F10.229 Alcohol dependence with intoxication, unspecified; F32.9 Major depressive disorder, single episode, unspecified; I10 Essential (primary) hypertension; I48.0 Paroxysmal atrial fibrillation; K70.10 Alcoholic hepatitis without ascites; K70.30 Alcoholic cirrhosis of liver without ascites; K76.0 Fatty (change of) liver, not elsewhere classified; K80.20 Calculus of gallbladder without cholecystitis without obstruction; R29.6 Repeated falls; T73.0XXA Starvation, initial encounter; Y90.0 Blood alcohol level of less than 20 mg/100 ml; Z59.0 Homelessness; Z63.8 Other specified problems related to primary support group; Z82.3 Family history of stroke; Z87.828 Personal history of other (healed) physical injury and trauma; Z90.49 Acquired absence of other specified parts of digestive tract; Z91.19 Patient's noncompliance with other medical treatment and regimen; Z91.81 History of falling; R73.9 Hyperglycemia, unspecified
CPT/HCPCS: 36415; 84145; 96374; 96375; 99291; J7042; 71045; 76705; 80048; 80053; 80320; 81001; 82962; 83605; 83735; 83930; 84100; 84295; 85025; 85610; 87040; 93005; G0378; J0610; J0696; J1644; J2543; J3411; J3475; J3480; J7070; G0480; J2060; J7030